=== PATIENT | male | born 1970 | race Caucasian/White ===

== ENCOUNTER 2023-01-09 22:29 | Emergency (ER) | payer BC, SELFPAY ==
[2023-01-09 22:31] VITALS: BP 199/97; PULSE 92; RESP 18; TEMP 36.6; O2SAT 99; BMI 22.2
--- NOTE | 2023-01-09 23:03 | ED.VIS.LOWEX ---
HPI History of Present Illness Chief Complaint: Lower Extremity Injury Informant: patient and spouse/S.O. Narrative Narrative: Swelling left lower extremity noted this evening. Patient been working on his floors with knee pads, there has been increasing pain more prepatellar, there is bump and swelling there over 3 to 4 days. No drainage. No fevers. No history of diabetes. History of hypertension and IBS. [facility] Medical History HTN (hypertension) Home Medications lisinopril 10 mg tablet 10 mg PO DAILY 01/09/23 [History Last Taken Unknown] pantoprazole 40 mg tablet,delayed release 40 mg PO DAILY 01/09/23 [History Last Taken Unknown] doxycycline monohydrate 100 mg capsule 100 mg PO BID #14 CAPSULES 01/10/23 [Rx Last Taken Unknown] Allergy/AdvReac Type Severity Reaction Status Date / Time naproxen [From Aleve] AdvReac Upset Verified 01/09/23 22:33 Stomach Social History Smoking Status: Current every day smoker tobacco type: cigarettes ROS ROS ED Constitutional Constitutional ED: Denies chills, fever(s) or sweats Eyes Eyes: Denies change in vision ENT ENT ED: Denies dysphagia or sore throat Cardiovascular Cardiovascular: Denies chest pain, leg edema, palpitations or racing heartbeat Respiratory/Chest Respiratory/Chest: Denies cough, dyspnea or dyspnea on exertion Gastrointestinal Gastrointestinal: Denies abdominal pain, diarrhea, nausea or vomiting Genitourinary Genitourinary ED: Denies dysuria, hematuria or urinary frequency Musculoskeletal Musculoskeletal: Denies back pain, extremity pain or neck pain Integumentary Reports wounds; Denies rash Neurologic Neurologic: Denies headache(s), paresthesias or weakness EXAM Physical Exam Const Vital Signs: 01/09/23 22:31 Temperature 97.9 F Temperature Source Temporal Pulse Rate 92 Respiratory Rate 18 Blood Pressure 199/97 H Blood Pressure Mean 131 Pulse Ox 99 Oxygen Delivery Method Room Air Positive well nourished and well developed General Appearance ED: well developed and NAD HEENT Reports moist mucous membranes normocephalic and atraumatic Eyes PERRL, EOMs intact bilaterally and conjunctivae normal General Eye ED: Yes normal appearance of both eyes Neck no lymphadenopathy and supple General: Negative for tenderness Chest Wall Chest: Negative for tenderness Resp normal respiratory effort and normal air movement Effort and Inspection: symmetric chest movement; Negative for respiratory distress Cardio regular rate, regular rhythm and no murmurs Peripheral Pulses: pulses 2+ throughout GI normal to inspection, nondistended, normoactive bowel sounds and non-tender Palpation: Negative for guarding or rebound tenderness present Back/Spine no CVA tenderness and no thoracic nor lumbar tenderness Extremity Extremity Narrative: Left lower extremity: Patellar and prepatellar area there was dry skin, there is an area of prepatellar 3 cm swelling mild erythema with slight fluctuance and tenderness. There is swelling to the anterior lateral distal tibia no calf tenderness or swelling. Skin intact. Neuro vas intact. General Extremety ED: Negative for edema or tenderness General Extremity: Negative for edema Neuro oriented x3 and no sensory deficits noted Sensorium / Orientation: awake and alert Skin Skin Narrative: See above MDM MDM MDM Narrative Medical decision making narrative: Interventions / MDM: Differential diagnosis:Skin abscess with surrounding cellulitis Diagnosis considered but do not suspect:DVT, swelling anterior there is no calf tenderness or swelling or pain. My EKG interpretation: N/A Imaging independently reviewed and interpreted by myself: N/A External documents reviewed: N/A Test considered but not ordered:N/A ED course: Patient clinical exam small abscess prepatellar with surrounding cellulitis. Not significant, anterior leg swelling there is no calf swelling or pain. Clinically and not in regions for concern of DVT. Discussed incision and drainage today agreed performed small exudative output copiously flushed. He started on doxycycline. Outpatient follow-up with return precautions. All questions were answered. Re-evaluation: stable Disposition discussed with patient/family/significant other: Patient and significant other Case discussed with consulting clinician: N/A Procedure note: Incision and drainage. Verbal consent. Normal sterile conditions. Skin was prepped with Betadine, 2 cc 1% lidocaine used for local analgesia. 11 blade cruciate incision made slight exudative return, loculations broken with hemostats. Flushed with normal saline using flush. Dressing placed by myself. Patient tolerated procedure well. Discharge Plan Triage Chief Complaint: Lower Extremity Injury ED Provider: Max Bain Dx/Rx/DC Orders Clinical Impression: Abscess of skin, Cellulitis of skin Instructions: ED Abscess Incision And Drainage, ED Cellulitis Prescriptions: New doxycycline monohydrate 100 mg capsule 100 mg PO BID Qty: 14 0RF No Action pantoprazole 40 mg tablet,delayed release (DR/EC) 40 mg PO DAILY Label Comments: TAKE 1 TABLET BY MOUTH ONCE DAILY lisinopril 10 mg tablet 10 mg PO DAILY Label Comments: Take 1 tablet by mouth once daily. Primary Care Provider: Hieu Zapien Referrals: Hieu Zapien DO [Primary Care Provider] - 1 Week Activity Restrictions/Additional Instructions: Status post incision and drainage, take and finish antibiotic as prescribed drink plenty water with doxycycline. Follow-up with your doctor for wound check. Clinically no concerns for DVT at this point there is no calf pain your symptoms are more anterior likely from the infection. Monitor for fevers. Return if worsening symptoms. Disposition Disposition: Home, Self Care Discharge Date/Time: 01/10/23 00:17
[2023-01-10] MEDS: Doxycycline 100 MG CAPSULE PO (00:15)
[2023-01-10] MEDS: Lidocaine 1% (20 ml mdv) 20 ML Vial INFILT (00:15)
== END 2023-01-10 00:17 | disposition home or self-care (01) ==
PROVIDERS: Emergency Provider Emergency Medicine; PCP Student in an Organized Health Care Education/Training Program; Visit Provider Emergency Medicine
DX: L03.116 Cellulitis of left lower limb (principal); L02.416 Cutaneous abscess of left lower limb; F17.210 Nicotine dependence, cigarettes, uncomplicated; I10 Essential (primary) hypertension; Z79.899 Other long term (current) drug therapy
CPT/HCPCS: 10060; 99283